=== PATIENT | male | born 1965 | race Caucasian/White ===

== ENCOUNTER 2022-10-04 03:34 | Inpatient (IN) | payer OTHER ==
[~2022-10-04] VITALS: Ht 175.3 cm; Wt 110.2 kg
[2022-10-04] MEDS ORDERED: ONDANSETRON HCL 4MG/2ML INJ IV STA (03:47)
[2022-10-04] MEDS ORDERED: SODIUM CHLORIDE 0.9% 1,000 ML IV ONE ×2 (04:00→09:45)
[2022-10-04] MEDS ORDERED: DIAZEPAM 5 MG/ML 2ML CPJ IV ONE (04:00)
[2022-10-04 04:04] LABS: BASOPHILS % 0.4 % (0.0-2.0); EOSINOPHILS % 1.7 % (0.0-5.0); HEMATOCRIT. 42.3 % (42.0-52.0); HEMOGLOBIN. 14.8 g/dL (14.0-18.0); MEAN CORPUSCULAR HEMOGLOBIN 30.3 pg (28.0-32.0); MEAN CORPUSCULAR VOLUME 86.5 fL (80.0-94.0); MEAN PLATELET VOLUME 8.1 fl (7.4-10.4); MONOCYTES % 7.5 % (2.0-8.0); NEUTROPHILS % 59.4 % (40.0-76.0); PLATELET 266 x1000/uL (130-400); RED BLOOD CELL COUNT 4.89 mill/uL (4.7-6.1); RED CELL DISTRIBUTION WIDTH 12.9 % (11.6-14.6)
[2022-10-04 04:11] LABS: CHLORIDE 107 mEq/L (98-107)
[2022-10-04] MEDS ORDERED: MECLIZINE 25MG TABLET PO ONE ×2 (05:45→11:30)
[2022-10-04] MEDS ORDERED: CLONIDINE 0.1MG TABLET PO PRN (12:00)
[2022-10-04] MEDS ORDERED: ACETAMINOPHEN 325MG TABLET PO PRN ×2 (12:00)
[2022-10-04] MEDS ORDERED: DIAZEPAM 5 MG/ML 2ML CPJ IV PRN (12:00)
[2022-10-04] MEDS ORDERED: DOCUSATE SODIUM 100MG CAPSULE PO PRN (12:00)
[2022-10-04] MEDS ORDERED: IPRATROPIUM/ALBUTEROL 0.5-3(2.5)MG/3ML NEB HHN PRN (12:00)
[2022-10-04] MEDS ORDERED: DIPHENHYDRAMINE 50MG/ML VIAL IV PRN (12:00)
[2022-10-04] MEDS: MECLIZINE 25MG TABLET PO SCH ×3 (12:00→20:53)
[2022-10-04] MEDS ORDERED: POTASSIUM CHLORIDE 20MEQ TABLET SR PO NR (12:00)
[2022-10-04] MEDS ORDERED: GUAIFENESIN 200MG/10ML SUGAR FREE UDC PO PRN (12:00)
[2022-10-04] MEDS ORDERED: ONDANSETRON HCL 4MG/2ML INJ IV PRN (12:00)
[2022-10-04] MEDS: ENOXAPARIN 40MG/0.4ML SYR SUBCUT SCH (13:17)
[2022-10-04 18:25] VITALS: BP 122/72; PULSE 84; RESP 18; TEMP 100.8
[2022-10-04 18:39] VITALS: BP 122/72; PULSE 84; RESP 18; TEMP 100.8
[2022-10-04] MEDS ORDERED: ESCI10TA PO (19:11)
[2022-10-04] MEDS ORDERED: ATOR20TA65 PO (19:11)
[2022-10-04 20:00] VITALS: BP 111/71; PULSE 76; RESP 21; TEMP 98.6
[2022-10-05] VITALS: BP 114/68; PULSE 83; RESP 20; TEMP 99.3
[2022-10-05] MEDS: MECLIZINE 25MG TABLET PO SCH ×2 (03:48→12:26)
[2022-10-05 04:00] VITALS: BP 123/70; PULSE 74; RESP 21; TEMP 99.6
[2022-10-05 07:00] LABS: HEMATOCRIT 43.7 % (42.0-52.0); MEAN CORPUSCULAR HEMOGLOBIN 30.3 pg (28.0-32.0); MEAN CORPUSCULAR VOLUME 88.5 fL (80.0-94.0); PLATELET 279 x1000/uL (130-400); RED BLOOD CELL COUNT 4.94 mill/uL (4.7-6.1); RED CELL DISTRIBUTION WIDTH 13.3 % (11.6-14.6)
[2022-10-05 08:00] VITALS: BP 143/92; PULSE 70; RESP 18; TEMP 97.1
[2022-10-05 08:19] LABS: CHLORIDE 104 mEq/L (98-107)
[2022-10-05 12:00] VITALS: BP_SYST 111; BP_SYST 115; BP_SYST 118; BP_DIAS 73; BP_DIAS 82; PULSE 85; RESP 20; TEMP 97.6
[2022-10-05] MEDS: ENOXAPARIN 40MG/0.4ML SYR SUBCUT SCH (12:28)
[2022-10-05] MEDS ORDERED: MECL-159 MT (13:42)
[2022-10-05 14:42] VITALS: BP 118/73; PULSE 84; TEMP 97.6; O2SAT 98
[2022-10-05] MEDS ORDERED: POTASSIUM CHLORIDE 20MEQ TABLET SR PO NR (16:30)
== END 2022-10-05 16:52 | disposition home or self-care (01) | DRG 312 ==
LOC: ER 04:46 → EDBEDREQ 09:42 → 7EST 17:37
PROVIDERS: ADMIT Hospitalist; ATTEND Hospitalist
DX: I95.1 Orthostatic hypotension (principal); E87.6 Hypokalemia
CPT/HCPCS: 36415; 80048; 80053; 84436; 84443; 84484; 85025; 85027; 93005; 93306; 93880; 93970; 99285; J1650; J2405; J7030; J8597